=== PATIENT | male | born 1940 | race Caucasian/White ===

== ENCOUNTER → 2018-01-23 | Outpatient (REF) | payer MEDICARE, BC ==
[~2018-01-23] MED LIST: ASPIRIN ENTERIC81 MG PO; AUGMENTIN500TAB PO; BAYER ASPIRIN E81 MG PO; BENTYL10 MG PO; BRILINTA90 MG PO; DICLOFENAC75 MG PO; FLOMAX0.4 M1 PO; LIPITOR20 M1 PO; LIPITOR20 MG PO; LISINOPRIL10 MG PO; LOPRESSOR50 M1 PO; LOTRISONE TOP; NEXIUM20 M1 OR; PHENAZOPYRID100 MG PO; PLAVIX75 MG PO; RESTORIL15 M1 PO; SAW PALMETTO80 MG PO; TRAMADOL HCL50 MG PO; TRICOR145 MG PO; ZESTRIL/PRI20 MG/TAB PO
[2018-01-23 09:30] LABS: HEMATOCRIT 44.1 % (39.0-50.0); HEMOGLOBIN 14.2 g/dl (14.0-18.0); IMMATURE GRANULOCYTES 0.2 % (0.0-5.0); MEAN CELL VOLUME 85.6 fL CALC (80.0-100.0); MEAN CORPUSCULAR HGB 27.6 pG CALC (26.0-32.0); MEAN CORPUSCULAR HGB CONC 32.2 g/L CALC (32.0-36.0); NEUT# 5.23 thou/uL (1.82-7.42); RED BLOOD COUNT 5.15 mill/uL (4.70-6.10); RED CELL DISTRI WIDTH 14.1 % (11.5-15.5)
[2018-01-23 09:57] LABS: ALBUMIN 4.1 g/dL (3.2-5.0); BILIRUBIN, TOTAL 0.7 mg/dL (0.0-1.4); CHOLESTEROL HDL RATIO 4.6 (<4.4 (CALC)); CREATININE 1.4 mg/dL (0.7-1.3); TOTAL PROTEIN 6.9 g/dL (6.3-8.2)
[2018-01-23 09:59] LABS: POTASSIUM 5.8 mmol/l (3.5-5.1)
== END | disposition home or self-care (01) ==
LOC: LAB 08:10
PROVIDERS: ATTEND Internal Medicine Geriatric Medicine
DX: I10 Essential (primary) hypertension (principal); E78.2 Mixed hyperlipidemia; Z12.5 Encounter for screening for malignant neoplasm of prostate